=== PATIENT | male | born 2005 | race African-American/Black ===

== ENCOUNTER 2025-07-09 01:04 | Emergency (ER) | payer OTHER ==
[~2025-07-09] VITALS: Ht 185.4 cm; Wt 71.0 kg
[~2025-07-09 01:04] MED LIST: AMOX500C PO; ONDA-282 PO
[2025-07-09 03:01] VITALS: BP 127/80; TEMP 99.1; O2SAT 97
== END 2025-07-09 03:43 | disposition left against medical advice (07) ==
LOC: M ED 01:04
DX: Z53.21 Procedure and treatment not carried out due to patient leaving prior to being seen by health care provider (principal)